=== PATIENT | male | born 1990 | race African-American/Black ===

== ENCOUNTER 2021-09-05 19:18 | Emergency (ER) | payer BC, OTHER ==
[~2021-09-05] VITALS: Ht 180.3 cm; Wt 77.1 kg
--- NOTE | 2021-09-05 19:28 | NUR ---
MOTHER CORTEZ CASTLE [phone]
[2021-09-05 19:41] VITALS: BP 130/79
--- NOTE | 2021-09-05 19:41 | NUR ---
31 Y/O MALE BIBA FOR 3MINUTE TONIC/CLONIC SEIZURE AT HOME AT 1830 TONIGHT. PATIENT PRESENTS TO ED WITH CONFUSION AND IN RESTRAINTS PER EMS DUE TO COMBATIVE AND HX OF ELOPING. DENIES N/V/D; SKIN IS PINK/WARM/DRY; AAOX4 WITH EVEN AND STEADY GAIT; LUNGS CLEAR BL; HR EVEN AND REGULAR; PT DENIES ANY FEVER, CP, SOB, OR COUGH AT THIS TIME; PATIENT STATES PAIN OF 0/10 AT THIS TIME; VSS; PATIENT POSITIONED FOR COMFORT; HOB ELEVATED; BEDRAILS UP X2; BED DOWN. ER MD MADE AWARE OF PT STATUS. HX: EPILEPSY NKA MEDS: KEPPRA AND VERSED
--- NOTE | 2021-09-05 19:41 | NUR ---
PT TAKEN TO BED 10A.
[2021-09-05] MEDS ORDERED: levETIRAcetam 500 MG TAB PO ONE (19:55)
--- NOTE | 2021-09-05 20:17 | NUR ---
RAD at bedside
[2021-09-05 20:48] LABS: BASOPHILS % (AUTO) 0.3 % (0.0-2.0); EOSINOPHILS % (AUTO) 0.1 % (0.0-4.0); HEMOGLOBIN 15.7 g/dL (12.0-18.0); LYMPHOCYTES # (AUTO) 0.8 K/uL (2.0-11.5); LYMPHOCYTES % (AUTO) 6.4 % (20.5-51.1); MEAN CORPUSCULAR HEMOGLOBIN 32 pg (27-31); MEAN CORPUSCULAR HGB CONC 34 g/dL (33-37); MEAN CORPUSCULAR VOLUME 94.2 fL (80-94); MONOCYTES # (AUTO) 1.1 K/uL (0.8-1.0); MONOCYTES % (AUTO) 8.8 % (1.7-9.3); NEUTROPHILS # (AUTO) 11.1 K/uL (1.8-7.7); NEUTROPHILS % (AUTO) 84.4 % (42.2-75.2); PLATELET COUNT (AUTO) 219 K/uL (140-450); RED BLOOD CELL COUNT(AUTO) 4.88 MIL/uL (4.20-6.10); RED CELL DISTRIBUTION WIDTH 13.3 % (11.6-13.7); WHITE BLOOD COUNT (AUTO) 13.1 K/uL (4.8-10.8)
[2021-09-05 21:22] LABS: CARBON DIOXIDE 18.2 mmol/L (21-32); CREATININE 1.3 mg/dL (0.6-1.3); POTASSIUM 4.2 mmol/L (3.5-5.1)
[2021-09-05 23:19] VITALS: BP 130/79
--- NOTE | 2021-09-05 23:20 | NUR ---
PT'S MOTHER CORTEZ WAS NOTIFED OF PT'S D/C. MOTHER STATED SHE WOULD REAL ESTATE TRANSACTION MANAGER THE PT. POC:
--- NOTE | 2021-09-05 23:45 | NUR ---
PT'S MOTHER, CORTEZ CASTLEScottJAYDON, SIGNED D/C PAPERWORK ON PT'S BEHALF.
--- NOTE | 2021-09-05 23:46 | NUR ---
Patient discharged with v/s stable. Written and verbal after care instructions given and explained. Patient verbalized understanding. Ambulatory with steady gait. All questions addressed prior to discharge. Advised to follow up with PMD. VSS, A/OX4, AMBULATORY W/O ASSISTANCE, UNLABORED BREATHING. PT PICKED UP BY MOTHER AND BELONGINGS LEFT WITH PT.
== END 2021-09-05 23:46 | disposition home or self-care (01) ==
LOC: MED 19:18
DX: R56.9 Unspecified convulsions (principal); E87.1 Hypo-osmolality and hyponatremia
CPT/HCPCS: 36415; 71045; 80048; 85025; 99284; Q0092